=== PATIENT | male | born 1985 | race Caucasian/White ===

== ENCOUNTER 2016-08-13 07:43 | Inpatient (IN) | payer MEDICAID, OTHER ==
[2016-08-13] VITALS (13 sets, daily range): BP systolic 93–132; BP diastolic 48–75; PULSE 72–92; RESP 13–52; TEMP 102.1
[~2016-08-13] VITALS: Ht 165.1 cm; Wt 90.0 kg
[~2016-08-13 07:43] MED LIST: SUCCINYLCHOLINE CHLORIDE 100 MG/5 ML SYG IV ONE
[2016-08-13] MEDS ORDERED: ONDANSETRON 4 MG INJ IV STA (08:06)
[2016-08-13] MEDS ORDERED: SOD CHLORIDE 0.9% 1,000 ML IV STA (08:06)
[2016-08-13] MEDS ORDERED: morphine 4 MG/ML VIAL IV STA (08:06)
[2016-08-13 08:38] LABS: BASOPHILS % 0.2 % (0.0-2.0); EOSINOPHILS # 0.1 10^3/ul (0.0-0.5); EOSINOPHILS % 0.7 % (0.0-7.0); HEMATOCRIT 43.2 % (42.0-52.0); HEMOGLOBIN 14.7 g/dl (14.0-18.0); LYMPHOCYTES # 1.9 10^3/ul (0.8-2.9); LYMPHOCYTES % 12.6 % (15.0-51.0); MEAN CORPUSCULAR HEMOGLOBIN 30.7 pg (29.0-33.0); MEAN CORPUSCULAR VOLUME 90.2 fl (82.0-101.0); MEAN PLATELET VOLUME 9.1 fl (7.4-10.4); MONOCYTE # 0.9 10^3/ul (0.3-0.9); MONOCYTES % 6.1 % (0.0-11.0); NEUTROPHILS % 79.9 % (39.0-77.0); PLATELET COUNT 345 10^3/UL (140-415); RED BLOOD COUNT 4.79 10^6/ul (4.70-6.10); RED CELL DISTRIBUTION WIDTH 12.1 % (11.5-14.5)
--- NOTE | 2016-08-13 08:41 | RADRPT ---
AMENDMENT: 08/13/2016 10:43:07 AM Phong Alexandre M.D PROCEDURE: CT Abdomen and Pelvis without contrast. CLINICAL INDICATION: Right lower quadrant pain, fever. TECHNIQUE: CT scan of the abdomen and pelvis without contrast was performed on a multidetector [facility] h-resolution CT scanner. The patient was scanned without intravenous contrast. Coronal and sagittal reformatted images were obtained from the axial source images. Images were reviewed on a high-resol [employer] PACS workstation. The total exam CTDI equals 17.77 mGy and the total exam DLP equals 1094.03 m Gy-cm. One or the following dose reduction techniques were used: -Automated exposure control. -Adjustment of the mA and/or KV according to patient's size. -Use of iterative reconstruction technique. COMPARISON: None. FINDINGS: Lung Bases: Unremarkable. GI:. Unremarkable. Liver: Liver appears normal in size. The overall attenuation is decrease consistent with mild diffu se steatosis appear Gallbladder: Unremarkable. Pancreas: Unremarkable. Spleen: Unremarkablel Adrenals: Unremarkable. Kidneys: There is no evidence of urolithiasis or obstructive uropathy. Bladder: Unremarkable. Pelvic Organs: Unremarkable. Skeleton: Normal for age. Other: N/A IMPRESSION: 1. Findings consistent with acute appendicitis. 2. Mild decrease in the attenuation of the liver suggesting mild diffuse steatosis. 3. No evidence of urolithiasis or obstructive uropathy. Note: A call report was made to Leyla Paula on 08/13/2016 8:38:45 AM. RPTAT: [facility] PROCEDURE: CT Abdomen and Pelvis without contrast. CLINICAL INDICATION: Right lower quadrant pain, fever. TECHNIQUE: CT scan of the abdomen and pelvis without contrast was performed on a multidetector [facility] h-resolution CT scanner. The patient was scanned without intravenous contrast. Coronal and sagittal reformatted images were obtained from the axial source images. Images were reviewed on a high-resol [employer] PACS workstation. The total exam CTDI equals 17.77 mGy and the total exam DLP equals 1094.03 m Gy-cm. One or the following dose reduction techniques were used: -Automated exposure control. -Adjustment of the mA and/or KV according to patient's size. -Use of iterative reconstruction technique. COMPARISON: None. FINDINGS: Lung Bases: Unremarkable. GI:. Unremarkable. Liver: Liver appears normal in size. The overall attenuation is decrease consistent with mild diffu se steatosis appear Gallbladder: Unremarkable. Pancreas: Unremarkable. Spleen: Unremarkablel Adrenals: Unremarkable. Kidneys: There is no evidence of urolithiasis or obstructive uropathy. Bladder: Unremarkable. Pelvic Organs: Unremarkable. Skeleton: Normal for age. Other: N/A IMPRESSION: 1. Findings consistent with acute appendicitis. 2. Mild decrease in the attenuation of the liver suggesting mild diffuse steatosis. 3. No evidence of urolithiasis or obstructive uropathy. Note: A call report was made to Leyla Paula on 08/13/2016 8:38:45 AM. RPTAT: [facility] Physician Kashif Date Time Electronically viewed and signed by Jose Alexandre Physician on 08/13/2016 10:43 JH/
--- NOTE | 2016-08-13 08:47 | ERD ---
ER Documentation Chief Complaint Date/Time DATE: 08/13/16 TIME: 08:43 Chief Complaint RLQ ABD PAIN, ONSET 2 DAYS, GUARDING, TENDER ON PALPATION (JORGE CASTILLO) HPI This is a 31-year-old male presents to the ER with right lower quadrant abdominal pain that started yesterday. Patient states that abdominal pain started off mild, however pain has worsened. Pain is nonradiating. Pain is described as a stabbing sensation. Patient had a fever last night and has had episodes of nonbilious nonbloody vomiting. He does not have any diarrhea or constipation. Patient took Tylenol for his fever which resolved fever yesterday. He denies any urinary frequency or dysuria. He denies any testicular pain. He denies any trauma. (JORGE CASTILLO) ROS 12 point review of systems was done, all negative except per HPI. (JORGE CASTILLO) Allergies Allergies: Coded Allergies: No Known Drug Allergies (Verified Allergy, Unknown, 08/13/16) PMhx/Soc History of Surgery: No Anesthesia Reaction: No Hx Neurological Disorder: No Hx Respiratory Disorders: No Hx Cardiac Disorders: No Hx Psychiatric Problems: No Hx Miscellaneous Medical Probl: No Hx Alcohol Use: No Hx Substance Use: No Hx Tobacco Use: No Smoking Status: Never smoker (JORGE CASTILLO) Physical Exam Vitals Vital Signs Date Time Temp Pulse Resp B/P Pulse Ox O2 Delivery O2 Flow Rate FiO2 08/13/16 07:45 99.5 107 17 124/71 99 (AURORA BEVERLY DO) Physical Exam GENERAL: The patient is well developed and appropriate for usual state of health , in no apparent distress. HEENT: Atraumatic. CHEST: Clear to auscultation bilaterally. There are no rales, wheezes or rhonchi. HEART: Regular rate and rhythm. No murmurs, clicks, rubs or gallops. ABDOMEN: Soft, nondistended, tender to palpation in the right lower quadrant.. Good bowel sounds. Rebound tenderness with guarding.. No gross peritonitis. No gross organomegaly or masses. No Devries sign, positive McBurney's point. BACK: No midline or flank tenderness. NEURO: Alert and oriented. SKIN: The skin is warm and dry. (JORGE CASTILLO) Result Diagram: 08/13/16 0815 08/13/16 0815 Results 24 hrs Laboratory Tests Test 08/13/16 08:15 08/13/16 10:36 White Blood Count 15.010^3/ul Red Blood Count 4.7910^6/ul Hemoglobin 14.7g/dl Hematocrit 43.2% Mean Corpuscular Volume 90.2fl Mean Corpuscular Hemoglobin 30.7pg Mean Corpuscular Hemoglobin Concent 34.0g/dl Red Cell Distribution Width 12.1% Platelet Count 78549^3/UL Mean Platelet Volume 9.1fl Neutrophils % 79.9% Lymphocytes % 12.6% Monocytes % 6.1% Eosinophils % 0.7% Basophils % 0.2% Nucleated Red Blood Cells % 0.0/100WBC Neutrophils # 12.010^3/ul Lymphocytes # 1.910^3/ul Monocytes # 0.910^3/ul Eosinophils # 0.110^3/ul Basophils # 0.010^3/ul Nucleated Red Blood Cells # 0.010^3/ul Prothrombin Time 13.3Sec Prothrombin Time Ratio 1.0 INR International Normalized Ratio 1.01 Activated Partial Thromboplast Time 34.2Sec Sodium Level 135mmol/L Potassium Level 3.8mmol/L Chloride Level 96mmol/L Carbon Dioxide Level 28mmol/L Anion Gap 15 Blood Urea Nitrogen 8mg/dl Creatinine 0.89mg/dl Glucose Level 103mg/dl Calcium Level 9.5mg/dl Total Bilirubin 1.0mg/dl Direct Bilirubin 0.00mg/dl Indirect Bilirubin 1.0mg/dl Aspartate Amino Transf (AST/SGOT) 32IU/L Alanine Aminotransferase (ALT/SGPT) 53IU/L Alkaline Phosphatase 104IU/L Total Protein 8.3g/dl Albumin 5.1g/dl Globulin 3.20g/dl Albumin/Globulin Ratio 1.59 Lipase 25U/L Urine Color YELLOW Urine Clarity CLEAR Urine pH 6.0 Urine Specific [place] 1.008 Urine Ketones NEGATIVEmg/dL Urine Nitrite NEGATIVEmg/dL Urine Bilirubin NEGATIVEmg/dL Urine Urobilinogen NEGATIVEmg/dL Urine Leukocyte Esterase NEGATIVELeu/ul Urine Hemoglobin NEGATIVEmg/dL Urine Glucose 1+mg/dL Urine Total Protein NEGATIVEmg/dl Current Medications Medications (Trade) Dose Ordered Sig/Tomas Route PRN Reason Start Time Stop Time Status Last Admin Dose Admin Sodium Chloride (NS) 1,000 ml @ 1,000 mls/hr Q1H STAT IV 08/13/16 08:06 08/13/16 09:05 DC 08/13/16 08:19 Morphine Sulfate (morphine) 6 mg ONCE STAT IV 08/13/16 08:06 08/13/16 08:08 DC 08/13/16 08:20 Ondansetron HCl 4 mg 4 mg ONCE STAT IV 08/13/16 08:06 08/13/16 08:08 DC 08/13/16 08:19 Piperacillin Sod/ Tazobactam Sod 100 ml @ 200 mls/hr ONCE ONCE IVPB 08/13/16 09:00 08/13/16 09:29 DC 08/13/16 09:23 Sodium Chloride (NS) 1,000 ml @ 1,000 mls/hr Q1H ONCE IV 08/13/16 09:00 08/13/16 09:59 DC 08/13/16 09:09 Ondansetron HCl (Zofran Inj) 4 mg BRIDGE ORDER PRN IV NAUSEA AND/OR VOMITING 08/13/16 11:30 08/14/16 11:29 Acetaminophen (Tylenol Tab) 650 mg ER BRIDGE PRN PO MILD PAIN/FEVER 08/13/16 11:30 08/14/16 11:29 Acetaminophen (Tylenol Tab) 650 mg ONCE ONCE PO 08/13/16 11:30 08/13/16 11:31 DC 08/13/16 11:48 (AURORA BEVERLY DO) Procedures/MDM This is a 31-year-old male presents to the ER with right lower quadrant pain that started 2 days ago. Patient does have acute appendicitis and would benefit from admission for further management and care. At this time patient is afebrile and stable. (JORGE CASTILLO) Patient does work as began in fast track. His abdominal pain is improved with pain medications. Did call and speak with Dr. Gomez who will be surgically managing the case. Dr. Olvera is also aware and is admitting the patient to the medical surgical floor. (AURORA BEVERLY DO) Departure Diagnosis: Primary Impression: Appendicitis Condition: Stable JORGE CASTILLO Aug 13, 2016 08:46 AURORA BEVERLY DO Aug 13, 2016 11:54
[2016-08-13 08:55] LABS: ALBUMIN 5.1 g/dl (3.3-4.9); ALBUMIN/GLOBULIN RATIO 1.59; CALCIUM 9.5 mg/dl (8.4-10.2); CREATININE 0.89 mg/dl (0.61-1.24); POTASSIUM 3.8 mmol/L (3.5-5.1); TOTAL PROTEIN 8.3 g/dl (6.1-8.1)
[2016-08-13] MEDS ORDERED: SOD CHLORIDE 0.9% 1,000 ML IV ONE (09:00)
[2016-08-13] MEDS ORDERED: PIPER-TAZO 3.375 GM IV (PMX) 100 ML IVPB ONE (09:00)
[2016-08-13 09:07] LABS: ADD SCAN DIFF NO
--- NOTE | 2016-08-13 09:26 | RADRPT ---
PROCEDURE: Chest Radiograph. CLINICAL INDICATION: Abdominal pain TECHNIQUE: Single frontal chest radiograph. COMPARISON: None available FINDINGS: The cardiomediastinal silhouette is within normal limits. No infiltrate or effusion is seen. Th e bones are intact. IMPRESSION: 1. Unremarkable chest radiograph. RPTAT: [facility] .Jacob Lamar MD, MD Date Time Electronically viewed and signed by .Jacob Lamar MD, on 08/13/2016 09:26 .B/
[2016-08-13 11:29] LABS: INR 1.01; PROTIME 13.3 Sec (12.2-14.2)
[2016-08-13 11:30] LABS: PARTIAL THROMBOPLASTIN TIME 34.2 Sec (25.0-35.0)
[2016-08-13] MEDS ORDERED: ACETAMINOPHEN 325 MG TAB PO ONE (11:30)
[2016-08-13] MEDS ORDERED: ONDANSETRON 4 MG INJ IV PRN ×4 (11:30→16:30)
[2016-08-13] MEDS ORDERED: ACETAMINOPHEN 325 MG TAB PO PRN ×3 (11:30→16:00)
[2016-08-13 11:34] LABS: ADD UMIC NO; UR ASCORBIC ACID NEGATIVE (NEGATIVE); UR BILIRUBIN (Dip) NEGATIVE (NEGATIVE); UR BLOOD (Dip) NEGATIVE (NEGATIVE); UR CLARITY CLEAR (CLEAR); UR COLOR YELLOW (YELLOW); UR GLUCOSE (Dip) 1+ mg/dL (NEGATIVE); UR KETONES (Dip) NEGATIVE (NEGATIVE); UR LEUKOCYTE ESTERASE (Dip) NEGATIVE Leu/ul (NEGATIVE); UR NITRITE (Dip) NEGATIVE (NEGATIVE); UR SPECIFIC GRAVITY (Dip) 1.008 (1.003-1.030); UR TOTAL PROTEIN (Dip) NEGATIVE (NEGATIVE); UR UROBILINOGEN (Dip) NEGATIVE (NEGATIVE)
[2016-08-13] MEDS ORDERED: HYDROCODONE/APAP (5/325) TAB PO PRN ×2 (12:30→16:00)
[2016-08-13] MEDS ORDERED: NACL 0.9% 3 ML SYG IV SCH (12:30)
[2016-08-13] MEDS ORDERED: morphine 2 MG INJ IV PRN (12:30)
[2016-08-13] MEDS ORDERED: D5W-0.45 NACL + KCL 10 MEQ 1,000 ML IV SCH (12:30)
--- NOTE | 2016-08-13 12:42 | HP ---
Date/Time of Note Date/Time of Note DATE: 08/13/16 TIME: 12:37 Assessment/Plan VTE Prophylaxis VTE Prophylaxis Intervention: SCD's Assessment/Plan Chief Complaint/Hosp Course 1. Acute abdominal pain. CT evidence of acute appendicitis. The patient will be kept n.p.o. The patient was started on appropriate antibiotics. The patient will be given IV fluids. General surgery consult has already been called. The patient will be provided with adequate pain control. 2. Leukocytosis. Most probably secondary to #1. Continue management as per # 1. Plan: The patient will be admitted to inpatient medical surgical floor. The patient will be kept n.p.o. except for medications. The patient will be started on DVT prophylaxis and gastrointestinal prophylaxis. The patient will remain a full code. Activities will be as tolerated. The rest of the patient's management will be based on the clinical course, inputs from consultants, and the results of diagnostic studies. Based on the patient's clinical presentation, he most probably requires at least one midnight's stay for further management and evaluation of his clinical presentation. The case and management of this patient was fully discussed with Dr. Olvera. Problems: HPI/ROS Admit Date/Time Admit Date/Time Hx of Present Illness Reason for admission: Abdominal pain. Consultants 1. Ralph Gomez MD, General Surgery. This is a 31-year-old male who denies any past medical history who came to the emergency room with chief complaint of abdominal pain with associated nausea, nonbloody nonbilious vomiting, diarrhea, and febrile illness. The patient verbalized that he has been having pain for the past 3 days. Patient described the pain as a stabbing sensation. The patient denied any radiation of the pain. The patient denied any dysuria or hematuria. The patient was noticed no leukocytosis. The patient was also febrile with a temperature as high as 102.9F. The patient underwent a CT scan of the abdomen and pelvis that showed findings consistent with acute appendicitis. The patient was treated with IV Zosyn along with IV fluids, analgesics, and antiemetics in the emergency room. A general surgery consult was called by the ER physician. ROS Constitutional: febrile, nausea Eyes: no complaints ENT: no complaints Respiratory: no complaints Cardiovascular: no complaints Gastrointestinal: diarrhea, pain Genitourinary: no complaints Musculoskeletal: no complaints Skin: no complaints Neurologic: no complaints Endocrine: no complaints Lymphatic: no complaints Psychological: no complaints PMH/Family/Social Past Medical History Medical History: no pertinent history Past Surgical History Past Surgical Hx: other (Laparotomy for hernia [details unclear]) Social History Works in construction. Alcohol Use: occasionally Smoking Status: Never smoker Drug Use: none Exam/Review of Systems Vital Signs Vitals Vital Signs Date Time Temp Pulse Resp B/P Pulse Ox O2 Delivery O2 Flow Rate FiO2 08/13/16 12:13 102.9 91 20 119/68 98 Room Air Exam Exam General: Adequately build 31 year-old male lying in bed in no apparent distress. HEENT: Normocephalic, atraumatic. Eyes: Anicteric sclerae, conjunctivae clear. ENT: Nasal septum midline, oral mucosa moist. Neck supple, no JVD noticed. Respiratory: Bilaterally clear breath sounds. No use of accessory muscles of respiration. No adventitious breath sounds. Cardiovascular: S1, S2 heard. No murmurs or gallops. Abdomen: Soft and nondistended. Bowel sounds positive in all 4 quadrants. Right lower quadrant tenderness. Rebound tenderness on the right lower quadrant. Genitourinary: Deferred. Extremities: No cyanosis, no clubbing, no edema. Peripheral pulses palpable. Neurologic: Cranial nerves II through XII grossly intact. The patient is awake, alert, and oriented. Skin: Normal skin turgor. No skin rashes. Labs Result Diagram: 08/13/16 0815 08/13/16 0815 Medications Medications Current Medications Ondansetron HCl (Zofran Inj) 4 mg Q6H PRN IV NAUSEA AND/OR VOMITING; Start at 12:30 Acetaminophen (Tylenol Tab) 650 mg Q6H PRN PO PAIN LEVEL 1-3 OR FEVER; Start at 12:30 Acetaminophen/ Hydrocodone Bitart ([place] (5/325)) 1 tab Q6H PRN PO MODERATE PAIN LEVEL 4-6; Start 08/13/16 at 12:30 Morphine Sulfate (morphine) 2 mg Q4H PRN IV SEVERE PAIN LEVEL 7-10; Start 08/13 at 12:30 Famotidine 20 mg 20 mg Q12 IV ; Start 08/13/16 at 21:00 Potassium Chloride/Dextrose/ Sod Cl 1,000 ml @ 100 mls/hr Q10H IV ; Start 08/13 at 12:30; Status UNV Piperacillin Sod/ Tazobactam Sod (Zosyn 3.375gm/ 100 ml (Pmx)) 100 ml @ 200 mls /hr Q8 IVPB ; Start 08/13/16 at 14:00; Status UNV Procedures Procedures CT Scan of the Abdomen and Pelvis IMPRESSION: 1. Findings consistent with acute appendicitis. 2. Mild decrease in the attenuation of the liver suggesting mild diffuse steatosis. 3. No evidence of urolithiasis or obstructive uropathy. CXR IMPRESSION: 1. Unremarkable chest radiograph. KATHY CASTELLANOS NP Aug 13, 2016 12:42
[2016-08-13 13:40] LABS: CHOL/HDL RATIO 4.3 RATIO
[2016-08-13] MEDS ORDERED: PIPER-TAZO 3.375 GM IV (PMX) 100 ML IVPB SCH (15:30)
[2016-08-13] MEDS ORDERED: ACETAMINOPHEN 1000MG/100ML IV 100 ML IVPB ONE (15:30)
[2016-08-13] MEDS ORDERED: LACTATED RINGER'S 1,000 ML IV SCH (15:30)
--- NOTE | 2016-08-13 15:50 | HP ---
Date/Time of Note Date/Time of Note DATE: 08/13/16 TIME: 15:48 Assessment/Plan VTE Prophylaxis VTE Prophylaxis Intervention: anti-embolic stocking, LMWH Assessment/Plan Assessment/Plan Assessment plan acute appendicitis I discussed laparoscopic, possible open appendectomy. All benefits, risks, alternatives discussed in detail. All questions were answered. The patient elected to proceed HPI/ROS Admit Date/Time Admit Date/Time Hx of Present Illness The patient is a 31-year-old male who developed acute onset right lower quadrant pain 2 days ago. His symptoms persisted and he had nausea vomiting. He presented to the ER at [facility]. His workup was consistent with acute appendicitis and I was called for consultation. ROS Constitutional: febrile, nausea Eyes: no complaints ENT: no complaints Respiratory: no complaints Cardiovascular: no complaints Gastrointestinal: diarrhea, pain Genitourinary: no complaints Musculoskeletal: no complaints Skin: no complaints Neurologic: no complaints Endocrine: no complaints Lymphatic: no complaints Psychological: no complaints PMH/Family/Social Past Medical History Medical History: no pertinent history Past Surgical History Past Surgical Hx: other (Laparotomy for hernia [details unclear]) Social History Alcohol Use: occasionally Smoking Status: Never smoker Drug Use: none Exam/Review of Systems Vital Signs Vitals Vital Signs Date Time Temp Pulse Resp B/P Pulse Ox O2 Delivery O2 Flow Rate FiO2 08/13/16 15:00 102.1 88 20 124/66 97 Room Air Exam Constitutional: alert, oriented, well developed Head: normocephalic Eyes: nl conjunctiva Respiratory: clear to auscultation Cardiovascular: regular rate and rhythm Gastrointestinal: soft, tender (to RLQ) Genitourinary - Male: nl penis, nl scrotum Musculoskeletal: nl extremities to inspection Extremities: normal pulses Labs Result Diagram: 08/13/1615 08/13/16 0815 Medications Medications Current Medications Ondansetron HCl (Zofran Inj) 4 mg Q6H PRN IV NAUSEA AND/OR VOMITING; Start at 12:30 Acetaminophen (Tylenol Tab) 650 mg Q6H PRN PO PAIN LEVEL 1-3 OR FEVER; Start at 12:30 Acetaminophen/ Hydrocodone Bitart ([place] (5/325)) 1 tab Q6H PRN PO MODERATE PAIN LEVEL 4-6; Start 08/13/16 at 12:30 Morphine Sulfate (morphine) 2 mg Q4H PRN IV SEVERE PAIN LEVEL 7-10; Start 08/13 at 12:30 Famotidine 20 mg 20 mg Q12 IV ; Start 08/13/16 at 21:00 Potassium Chloride/Dextrose/ Sod Cl 1,000 ml @ 100 mls/hr Q10H IV ; Start 08/13 at 12:30 Piperacillin Sod/ Tazobactam Sod 100 ml @ 200 mls/hr Q8 IVPB ; Start 08/13/16 at 15:30 Lactated Ringer's (Lr) 1,000 ml @ 30 mls/hr Q24H IV ; Start 08/13/16 at 15:30 REGGIE MUNSON MD Aug 13, 2016 15:49
--- NOTE | 2016-08-13 15:54 | HP ---
Date/Time of Note Date/Time of Note DATE: 08/13/16 TIME: 15:34 Assessment/Plan VTE Prophylaxis VTE Prophylaxis Intervention: ambulation HPI/ROS Admit Date/Time Admit Date/Time ROS Constitutional: febrile, nausea ENT: no complaints Respiratory: no complaints Cardiovascular: chest pain, edema, lightheadedness, no complaints, orthopenea, other, palpitations, paroxysmal nocturnal dyspnea Gastrointestinal: diarrhea, pain Genitourinary: no complaints Musculoskeletal: no complaints Skin: no complaints Neurologic: no complaints Endocrine: no complaints Lymphatic: no complaints Psychological: no complaints PMH/Family/Social Past Medical History Medical History: no pertinent history Past Surgical History Past Surgical Hx: other (Laparotomy for hernia [details unclear]) Social History Alcohol Use: occasionally Smoking Status: Never smoker Drug Use: none Exam/Review of Systems Vital Signs Vitals Vital Signs Date Time Temp Pulse Resp B/P Pulse Ox O2 Delivery O2 Flow Rate FiO2 08/13/16 15:00 102.1 88 20 124/66 97 Room Air Labs Result Diagram: 08/13/1615 08/13/16 0815 Medications Medications Current Medications Ondansetron HCl (Zofran Inj) 4 mg Q6H PRN IV NAUSEA AND/OR VOMITING; Start at 12:30 Acetaminophen (Tylenol Tab) 650 mg Q6H PRN PO PAIN LEVEL 1-3 OR FEVER; Start at 12:30 Acetaminophen/ Hydrocodone Bitart ([place] (5/325)) 1 tab Q6H PRN PO MODERATE PAIN LEVEL 4-6; Start 08/13/16 at 12:30 Morphine Sulfate (morphine) 2 mg Q4H PRN IV SEVERE PAIN LEVEL 7-10; Start 08/13 at 12:30 Famotidine 20 mg 20 mg Q12 IV ; Start 08/13/16 at 21:00 Potassium Chloride/Dextrose/ Sod Cl 1,000 ml @ 100 mls/hr Q10H IV ; Start 08/13 at 12:30 Piperacillin Sod/ Tazobactam Sod 100 ml @ 200 mls/hr Q8 IVPB ; Start 08/13/16 at 15:30 Acetaminophen 100 ml @ 400 mls/hr ONCE ONCE IVPB Last administered on t 15:22; Admin Dose 400 MLS/HR; Start 08/13/16 at 15:30; Stop 08/13/16 at 15: 44 Lactated Ringer's (Lr) 1,000 ml @ 30 mls/hr Q24H IV ; Start 08/13/16 at 15:30 REGGIE MUNSON MD Aug 13, 2016 15:45
[2016-08-13] MEDS ORDERED: PROPOFOL 20 ML ONE (15:58)
[2016-08-13] MEDS ORDERED: ROCURONIUM 50 MG INJ ONE (15:58)
[2016-08-13] MEDS ORDERED: BUPIVACAINE 0.25%/EPI (SDV) 30 ML INJ ONE (15:58)
[2016-08-13] MEDS ORDERED: MIDAZOLAM 1 MG/ML 2 ML INJ ONE (15:58)
[2016-08-13] MEDS ORDERED: LIDOCAINE 1% (STERILE-PAK) 30 ML INJ ONE (15:58)
[2016-08-13] MEDS ORDERED: FENTAnyl 50 MCG/ML VIAL ONE (15:59)
[2016-08-13] MEDS ORDERED: ROPIVACAINE 0.5 % 30 ML VIAL ONE (15:59)
[2016-08-13] MEDS ORDERED: HYDROmorphONE 1 MG/ML SYG IV PRN (16:00)
[2016-08-13] MEDS: KETOROLAC 15 MG INJ IV SCH ×2 (16:00→22:05)
[2016-08-13] MEDS ORDERED: hydrALAzine 20 MG INJ IV PRN (16:30)
[2016-08-13] MEDS ORDERED: DIPHENHYDRAMINE 50 MG INJ IV PRN (16:30)
[2016-08-13] MEDS ORDERED: LABETALOL HCL 20MG INJ IV PRN (16:30)
[2016-08-13] MEDS ORDERED: EPHEDrine SULFATE 50 MG/5 ML SYG IV PRN (16:30)
[2016-08-13] MEDS ORDERED: METOCLOPRAMIDE 10 MG INJ IV PRN (16:30)
[2016-08-13] MEDS ORDERED: HYDROmorphONE (0.2 MG/ML) 10ML SYG IV PRN ×3 (16:30)
[2016-08-13] MEDS ORDERED: MEPERIDINE 25 MG INJ IV PRN (16:30)
[2016-08-13] MEDS ORDERED: morphine (1 MG/ML) 10ML SYRINGE IV PRN ×3 (16:30)
[2016-08-13] MEDS ORDERED: LIDOCAINE 1% (MPF) 30 ML INJ INJ ONE (16:32)
[2016-08-13] MEDS ORDERED: BUPIVACAINE 0.25%/EPI (SDV) 30 ML INJ INJ ONE (16:33)
[2016-08-13] MEDS ORDERED: METOCLOPRAMIDE 10 MG INJ ONE (16:37)
[2016-08-13] MEDS ORDERED: ONDANSETRON 4 MG INJ ONE (16:37)
[2016-08-13] MEDS ORDERED: KETOROLAC 30 MG INJ ONE (16:37)
[2016-08-13] MEDS ORDERED: DEXAMETHASONE 4 MG/ML 1 ML INJ ONE (16:37)
[2016-08-13] MEDS ORDERED: ACETAMINOPHEN 1000MG/100ML IV 100 ML ONE (16:38)
[2016-08-13] MEDS ORDERED: NEOSTIGMINE 3 MG/3 ML SYRINGE ONE (16:50)
[2016-08-13] MEDS ORDERED: GLYCOPYRROLATE 0.4 MG INJ ONE (16:50)
[2016-08-13] MEDS: PIPER-TAZO 3.375 GM IV (PMX) 100 ML IVPB SCH (17:00)
--- NOTE | 2016-08-13 20:18 | OPR ---
Date/Time of Note Date/Time of Note DATE: 08/13/16 TIME: 20:11 Operative Report Procedure Date: Aug 13, 2016 Preoperative Diagnosis Acute Appendicitis Postoperative Diagnosis Same Operation Performed Lap appendectomy Surgeon: REGGIE MUNSON MD Anesthesia: general Anesthesiologist: IHSAN CARRASCO MD Estimated Blood Loss: 10 - 50 ml's Specimens Appendix\ Grafts/Implants None Tubes/Drains 19 F R Meir Complications: None Pt Condition Post Procedure: stable Disposition: PACU Indications The patient is a 31 y.o. w/ acute appendicitis. I discussed laparoscopic, possible open, appendectomy with the patient. All benefits, risks, and alternatives were discussed in detail with the patient. All of the patient's questions were answered specifically with respect to the indications, options and risks. The patient agreed with the planned procedure. Operative\Procedure Findings perforated appendicitis Procedure Description The patient was brought to the operating room, placed supine on the table. After preoperative antibiotics and SCDs was placed, the patient was intubated. The abdomen was cleaned, prepped and draped in sterile fashion. All incisions were injected with 1 percent lidocaine with epinephrine and 0.5 percent Marcaine prior to incision. A 5 mm incision was made in the umbilicus. Using a 5 mm laparoscope containing trocar, the abdomen was entered under direct vision and insufflated to 15 mm of CO2. Trocars were then placed under direct vision: a right lower quadrant 5 mm and a left lower quadrant 12 mm. Emanating from the cecum, was an obvious appendix consistent with acute appendictis. It was ruptured. I was able to make a rent at the base of the mesentery where the appendix joined the cecum and was able to divide the cecum at the base of the appendix with a 345 mm Endo linear cutter blue load. The appendiceal mesentery was then divided with a 35 mm Endo linear cutter white load. The appendix was placed in an EndoCatch bag and removed through the 12 mm trocar site. I copiously irrigated out the right lower quadrant and pelvis until effluent was clear. A 19 F [place] drain was placed in the RLQ and pelvis. It exited through the RLQ 5 mm trocar site and was sutured to the skin with a 2'0 Nylon. I closed the fascial defect of the 12mm trocar with a 0 Vicryl sing the Endoclose device under direct vision. . At this point, the abdomen was desufflated and all trocars removed. Skin incisions were all closed with 4-0 Monocryl, Mastisol and Steri-Strips. The patient tolerated the procedure well, was extubated in the OR, and transferred to the recovery room in stable condition. The patient's family was notified of the patient's surgery and condition as directed by the patient preoperatively. REGGIE MUNSON MD Aug 13, 2016 20:18
[2016-08-13] MEDS: D5-NS + KCL 20 MEQ 1,000 ML IV SCH ×2 (21:58→23:59)
[2016-08-13] MEDS: FAMOTIDINE 20 MG INJ IV SCH (22:05)
[2016-08-14] MEDS: PIPER-TAZO 3.375 GM IV (PMX) 100 ML IVPB SCH ×5 (00:55→23:27)
[2016-08-14] MEDS: KETOROLAC 15 MG INJ IV SCH ×4 (04:59→23:27)
[2016-08-14 06:09] LABS: BASOPHILS % 0.1 % (0.0-2.0); LYMPHOCYTES # 1.1 10^3/ul (0.8-2.9); LYMPHOCYTES % 7.8 % (15.0-51.0); MEAN CORPUSCULAR HEMOGLOBIN 29.8 pg (29.0-33.0); MEAN CORPUSCULAR HGB CONC 32.5 g/dl (32.0-37.0); MEAN CORPUSCULAR VOLUME 91.7 fl (82.0-101.0); MEAN PLATELET VOLUME 9.3 fl (7.4-10.4); MONOCYTE # 0.7 10^3/ul (0.3-0.9); MONOCYTES % 4.7 % (0.0-11.0); NEUTROPHIL # 12.1 10^3/ul (1.6-7.5); PLATELET COUNT 297 10^3/UL (140-415); RED BLOOD COUNT 4.36 10^6/ul (4.70-6.10); RED CELL DISTRIBUTION WIDTH 12.1 % (11.5-14.5); WHITE BLOOD COUNT 13.9 10^3/ul (4.8-10.8)
[2016-08-14 06:32] LABS: MAGNESIUM 2.4 mg/dl (1.7-2.5); PHOSPHORUS 3.7 mg/dl (2.5-4.9)
[2016-08-14 06:33] LABS: ALBUMIN 4.2 g/dl (3.3-4.9); ALBUMIN/GLOBULIN RATIO 1.5; BILIRUBIN,INDIRECT 0.6 mg/dl (0-1.1); BILIRUBIN,TOTAL 0.6 mg/dl (0.2-1.3); CALCIUM 9.2 mg/dl (8.4-10.2); CREATININE 0.81 mg/dl (0.61-1.24); POTASSIUM 4.1 mmol/L (3.5-5.1)
[2016-08-14] MEDS: ENOXAPARIN 40 MG/0.4 ML SYG SC SCH (07:55)
[2016-08-14 08:00] VITALS: BP 102/52; RESP 18
[2016-08-14] MEDS: FAMOTIDINE 20 MG INJ IV SCH ×2 (08:01→23:27)
--- NOTE | 2016-08-14 08:54 | PN ---
Date/Time of Note Date/Time of Note DATE: 08/14/16 TIME: 08:52 Assessment/Plan Lines/Catheters IV Catheter Type (from Nrs): Peripheral IV Assessment/Plan Assessment/Plan Postop day 1 from laparoscopic appendectomy for perforated appendix Advance diet as tolerate Out of bed Recommend 24 hours of IV antibiotic Hopefully discharge tomorrow with drain Subjective 24 Hr Interval Summary Patient without complaints. Feeling better Exam/Review of Systems Vital Signs Vitals Vital Signs Date Time Temp Pulse Resp B/P Pulse Ox O2 Delivery O2 Flow Rate FiO2 08/13/16 23:18 98.1 79 16 93/48 95 08/13/16 18:20 Room Air 08/13/16 17:31 2.0 Intake and Output 08/13/16 08/13/16 08/14/16 15:00 23:00 07:00 Intake Total 2000 ml 1000 ml 1240 ml Output Total 930 ml 770 ml Balance 2000 ml 70 ml 470 ml Exam Respiratory: clear to auscultation Cardiovascular: regular rate and rhythm Gastrointestinal: distended, soft Results Result Diagram: 08/14/16 0536 08/14/16 0536 REGGIE MUNSON MD Aug 14, 2016 08:54
--- NOTE | 2016-08-14 10:45 | PN ---
Date/Time of Note Date/Time of Note DATE: 08/14/16 TIME: 10:45 Assessment/Plan VTE Prophylaxis VTE Prophylaxis Intervention: LMWH Lines/Catheters IV Catheter Type (from [facility]): Peripheral IV Urinary Cath still in place: No Assessment/Plan Chief Complaint/Hosp Course 1. Perforated appendicitis. Status post laparoscopic appendectomy and placement of a drain on 08/13/2016. Continue antibiotics. Continue pain control. Advancement of diet as per surgery. 2. Leukocytosis. Most probably secondary to #1. Continue management as per # 1. 3. Dyslipidemia. We will reinforce a low-cholesterol diet. 4. Prediabetes. Hemodynamics of 6.1. We will reinforce a low carbohydrate diet. 5. Fluids, electrolytes, and nutrition. Clear liquid diet. Advancement of diet as per surgery. 6. DVT prophylaxis. Subcutaneous Lovenox. 7. Gastrointestinal prophylaxis. Histamine 2 receptor blockers. 8. Plan. Continue pain management. Continue empiric antibiotics. Encourage frequent ambulation and frequent use of incentive spirometer. Case discussed with . Problems: Subjective 24 Hr Interval Summary Free Text/Dictation Patient remains afebrile. Abdominal pain well controlled. Exam/Review of Systems Vital Signs Vitals Vital Signs Date Time Temp Pulse Resp B/P Pulse Ox O2 Delivery O2 Flow Rate FiO2 08/14/16 08:00 98.6 68 18 102/52 96 08/13/16 18:20 Room Air 08/13/16 17:31 2.0 Intake and Output 08/13/16 08/13/16 08/14/16 15:00 23:00 07:00 Intake Total 2000 ml 1000 ml 1240 ml Output Total 930 ml 770 ml Balance 2000 ml 70 ml 470 ml Exam General: Adequately build 31 year-old male lying in bed in no apparent distress. HEENT: Normocephalic, atraumatic. Eyes: Anicteric sclerae, conjunctivae clear. ENT: Nasal septum midline, oral mucosa moist. Neck supple, no JVD noticed. Respiratory: Bilaterally clear breath sounds. No use of accessory muscles of respiration. No adventitious breath sounds. Cardiovascular: S1, S2 heard. No murmurs or gallops. Abdomen: Soft and nondistended. Bowel sounds positive in all 4 quadrants. Right lower quadrant tenderness. Right lower quadrant drain in place. Genitourinary: Deferred. Extremities: No cyanosis, no clubbing, no edema. Peripheral pulses palpable. Neurologic: Cranial nerves II through XII grossly intact. The patient is awake, alert, and oriented. Skin: Normal skin turgor. No skin rashes. Results Result Diagram: 08/14/1636 08/14/1636 Results 24 hrs Laboratory Tests Test 08/14/16 05:36 White Blood Count 13.9 H Red Blood Count 4.36 L Hemoglobin 13.0 L Hematocrit 40.0 L Mean Corpuscular Volume 91.7 Mean Corpuscular Hemoglobin 29.8 Mean Corpuscular Hemoglobin Concent 32.5 Red Cell Distribution Width 12.1 Platelet Count 297 Mean Platelet Volume 9.3 Neutrophils % 87.0 H Lymphocytes % 7.8 L Monocytes % 4.7 Eosinophils % 0.0 Basophils % 0.1 Nucleated Red Blood Cells % 0.0 Neutrophils # 12.1 H Lymphocytes # 1.1 Monocytes # 0.7 Eosinophils # 0.0 Basophils # 0.0 Nucleated Red Blood Cells # 0.0 Sodium Level 140 Potassium Level 4.1 Chloride Level 99 Carbon Dioxide Level 26 Anion Gap 19 H Blood Urea Nitrogen 10 Creatinine 0.81 Glucose Level 120 Calcium Level 9.2 Phosphorus Level 3.7 Magnesium Level 2.4 Total Bilirubin 0.6 Direct Bilirubin 0.00 Indirect Bilirubin 0.6 Aspartate Amino Transf (AST/SGOT) 26 Alanine Aminotransferase (ALT/SGPT) 44 Alkaline Phosphatase 89 Total Protein 7.0 # Albumin 4.2 Globulin 2.80 Albumin/Globulin Ratio 1.50 Medications Medications Current Medications Acetaminophen/ Hydrocodone Bitart ([place] (5/325)) 1 tab Q6H PRN PO MODERATE PAIN LEVEL 4-6; Start 08/13/16 at 12:30 Morphine Sulfate (morphine) 2 mg Q4H PRN IV SEVERE PAIN LEVEL 7-10; Start 08/13 at 12:30 Famotidine 20 mg 20 mg Q12 IV Last administered on 08/14/16 08:01; Admin Dose 20 MG; Start 08/13/16 at 21:00 Lactated Ringer's 1,000 ml @ 30 mls/hr Q24H IV ; Start 08/13/16 at 15:30 Piperacillin Sod/ Tazobactam Sod (Zosyn 3.375gm/ 100 ml (Pmx)) 100 ml @ 200 mls /hr Q6 IVPB Last administered on 08/14/16 05:00; Admin Dose 200 MLS/HR; Start 08/13/16 at 17:00 Ondansetron HCl (Zofran Inj) 4 mg Q6H PRN IV NAUSEA AND/OR VOMITING; Start at 16:00 Acetaminophen (Tylenol Tab) 650 mg Q6H PRN PO PAIN LEVEL 1-3 OR FEVER; Start at 16:00 Ketorolac Tromethamine (Toradol) 15 mg Q6H IV Last administered on 08/14/16 09: 43; Admin Dose 15 MG; Start 08/13/16 at 16:00; Stop 08/15/16 at 10:01 Hydromorphone HCl (Dilaudid) 0.5 mg Q4H PRN IV PAIN LEVEL 8-10; Start 08/13/16 at 16:00 Acetaminophen/ Hydrocodone Bitart 1 tab 1 tab Q6H PRN PO PAIN LEVEL 4-7; Start 08/13/16 at 16:00 Potassium Chloride/Dextrose/ Sod Cl (D5-NS + KCl 20 Meq) 1,000 ml @ 100 mls/hr Q10H IV Last administered on 08/13/16 23:59; Admin Dose 100 MLS/HR; Start at 15:54 Enoxaparin Sodium (Lovenox) 40 mg DAILY@07 SC Last administered on 08/14/16 07: 55; Admin Dose 40 MG; Start 08/14/16 at 07:00 KATHY CASTELLANOS NP Aug 14, 2016 10:45
[2016-08-14] MEDS: SOD CHLORIDE 0.9% 1,000 ML IV SCH (13:11)
[2016-08-14 20:42] VITALS: BP 108/66; RESP 18
[2016-08-15] MEDS: SOD CHLORIDE 0.9% 1,000 ML IV SCH ×2 (00:50→14:33)
[2016-08-15] MEDS: KETOROLAC 15 MG INJ IV SCH ×2 (04:17→10:09)
[2016-08-15] MEDS: PIPER-TAZO 3.375 GM IV (PMX) 100 ML IVPB SCH ×4 (04:17→23:53)
[2016-08-15 05:52] LABS: BASOPHILS % 0.2 % (0.0-2.0); EOSINOPHILS # 0.1 10^3/ul (0.0-0.5); EOSINOPHILS % 0.8 % (0.0-7.0); HEMATOCRIT 38.1 % (42.0-52.0); HEMOGLOBIN 12.6 g/dl (14.0-18.0); LYMPHOCYTES # 1.8 10^3/ul (0.8-2.9); LYMPHOCYTES % 15.1 % (15.0-51.0); MEAN CORPUSCULAR HEMOGLOBIN 30.7 pg (29.0-33.0); MEAN CORPUSCULAR HGB CONC 33.1 g/dl (32.0-37.0); MEAN CORPUSCULAR VOLUME 92.7 fl (82.0-101.0); MEAN PLATELET VOLUME 9.2 fl (7.4-10.4); MONOCYTE # 0.9 10^3/ul (0.3-0.9); MONOCYTES % 7.1 % (0.0-11.0); NEUTROPHIL # 9.3 10^3/ul (1.6-7.5); NEUTROPHILS % 76.5 % (39.0-77.0); PLATELET COUNT 317 10^3/UL (140-415); RED BLOOD COUNT 4.11 10^6/ul (4.70-6.10); WHITE BLOOD COUNT 12.1 10^3/ul (4.8-10.8)
[2016-08-15 06:01] LABS: MAGNESIUM 2.1 mg/dl (1.7-2.5); PHOSPHORUS 3.5 mg/dl (2.5-4.9)
[2016-08-15 06:07] LABS: CREATININE 0.8 mg/dl (0.61-1.24); POTASSIUM 3.8 mmol/L (3.5-5.1)
[2016-08-15 07:07] LABS: ADD SCAN DIFF NO
[2016-08-15] MEDS: FAMOTIDINE 20 MG INJ IV SCH ×2 (09:03→21:15)
[2016-08-15] MEDS: ENOXAPARIN 40 MG/0.4 ML SYG SC SCH (09:05)
--- NOTE | 2016-08-15 09:30 | PN ---
Date/Time of Note Date/Time of Note DATE: 08/15/16 TIME: 09:28 Assessment/Plan Lines/Catheters IV Catheter Type (from Nrs): Peripheral IV Hinds in Place (from Nrsg): No Assessment/Plan Assessment/Plan postop day 2 status post lap appendectomy Had low-grade temperature yesterday so recommend 24 hours more of IV antibiotic White count decreasing Okay for discharge tomorrow Subjective 24 Hr Interval Summary Constitutional: improved, no complaints Pain Control: well controlled Exam/Review of Systems Vital Signs Vitals Vital Signs Date Time Temp Pulse Resp B/P Pulse Ox O2 Delivery O2 Flow Rate FiO2 08/14/16 23:47 99.2 08/14/16 20:42 82 18 108/66 96 08/13/16 18:20 Room Air 08/13/16 17:31 2.0 Intake and Output 08/14/16 08/14/16 08/15/16 15:00 23:00 07:00 Intake Total 700 ml 1260 ml 1170 ml Output Total 40 ml 815 ml Balance 700 ml 1220 ml 355 ml Exam Constitutional: alert, oriented, well developed Gastrointestinal: non-tender, soft Results Result Diagram: 08/15/16 0524 08/15/16 0524 REGGIE MUNSON MD Aug 15, 2016 09:30
[2016-08-15 10:06] VITALS: BP 108/63; RESP 18
--- NOTE | 2016-08-15 12:43 | PN ---
Date/Time of Note Date/Time of Note DATE: 08/15/16 TIME: 12:42 Assessment/Plan VTE Prophylaxis VTE Prophylaxis Intervention: LMWH Lines/Catheters IV C[facility]ter Type (from [facility]): Peripheral IV Urinary Cath still in place: No Assessment/Plan Chief Complaint/Hosp Course 1. Perforated appendicitis. Status post laparoscopic appendectomy and placement of a drain on 08/13/2016. Continue antibiotics. Continue pain control. Encourage frequent ambulation and frequent use of incentive spirometry 2. Leukocytosis. Most probably secondary to #1. Continue management as per # 1. 3. Dyslipidemia. Will reinforce a low-cholesterol diet. 4. Prediabetes. Hemodynamics of 6.1. Will reinforce a low carbohydrate diet. 5. Fluids, electrolytes, and nutrition. Low-cholesterol diet. 6. DVT prophylaxis. Subcutaneous Lovenox. 7. Gastrointestinal prophylaxis. Histamine 2 receptor blockers. 8. Plan. Continue pain management. Continue empiric antibiotics. Encourage frequent ambulation and frequent use of incentive spirometer. Discharge home once cleared by surgery. Case discussed with . Problems: Subjective 24 Hr Interval Summary Free Text/Dictation Had a low-grade fever last night. Exam/Review of Systems Vital Signs Vitals Vital Signs Date Time Temp Pulse Resp B/P Pulse Ox O2 Delivery O2 Flow Rate FiO2 08/15/16 10:06 98.7 75 18 108/63 95 08/13/16 18:20 Room Air 08/13/16 17:31 2.0 Intake and Output 08/14/16 08/14/16 08/15/16 15:00 23:00 07:00 Intake Total 700 ml 1260 ml 1170 ml Output Total 40 ml 815 ml Balance 700 ml 1220 ml 355 ml Exam General: Adequately build 31 year-old male lying in bed in no apparent distress. HEENT: Normocephalic, atraumatic. Eyes: Anicteric sclerae, conjunctivae clear. ENT: Nasal septum midline, oral mucosa moist. Neck supple, no JVD noticed. Respiratory: Bilaterally clear breath sounds. No use of accessory muscles of respiration. No adventitious breath sounds. Cardiovascular: S1, S2 heard. No murmurs or gallops. Abdomen: Soft and nondistended. Bowel sounds positive in all 4 quadrants. Right lower quadrant tenderness. Right lower quadrant drain in place. Genitourinary: Deferred. Extremities: No cyanosis, no clubbing, no edema. Peripheral pulses palpable. Neurologic: Cranial nerves II through XII grossly intact. The patient is awake, alert, and oriented. Skin: Normal skin turgor. No skin rashes. Results Result Diagram: 08/15/1652308/15/16523 Results 24 hrs Laboratory Tests Test 08/15/16 05:24 White Blood Count 12.1 H Red Blood Count 4.11 L Hemoglobin 12.6 L Hematocrit 38.1 L Mean Corpuscular Volume 92.7 Mean Corpuscular Hemoglobin 30.7 Mean Corpuscular Hemoglobin Concent 33.1 Red Cell Distribution Width 12.0 Platelet Count 317 Mean Platelet Volume 9.2 Neutrophils % 76.5 Lymphocytes % 15.1 Monocytes % 7.1 Eosinophils % 0.8 Basophils % 0.2 Nucleated Red Blood Cells % 0.0 Neutrophils # 9.3 H Lymphocytes # 1.8 Monocytes # 0.9 Eosinophils # 0.1 Basophils # 0.0 Nucleated Red Blood Cells # 0.0 Sodium Level 142 Potassium Level 3.8 Chloride Level 101 Carbon Dioxide Level 25 Anion Gap 20 H Blood Urea Nitrogen 10 Creatinine 0.80 Glucose Level 91 Calcium Level 9.0 Phosphorus Level 3.5 Magnesium Level 2.1 Medications Medications Current Medications Acetaminophen/ Hydrocodone Bitart ([place] (5/325)) 1 tab Q6H PRN PO MODERATE PAIN LEVEL 4-6; Start 08/13/16 at 12:30 Morphine Sulfate (morphine) 2 mg Q4H PRN IV SEVERE PAIN LEVEL 7-10; Start 08/13 at 12:30 Famotidine 20 mg 20 mg Q12 IV Last administered on 08/15/16 09:03; Admin Dose 20 MG; Start 08/13/16 at 21:00 Piperacillin Sod/ Tazobactam Sod (Zosyn 3.375gm/ 100 ml (Pmx)) 100 ml @ 200 mls /hr Q6 IVPB Last administered on 08/15/16 04:17; Admin Dose 200 MLS/HR; Start 08/13/16 at 17:00 Ondansetron HCl (Zofran Inj) 4 mg Q6H PRN IV NAUSEA AND/OR VOMITING; Start at 16:00 Acetaminophen (Tylenol Tab) 650 mg Q6H PRN PO PAIN LEVEL 1-3 OR FEVER Last administered on 08/14/16 23:28; Admin Dose 650 MG; Start 08/13/16 at 16:00 Hydromorphone HCl (Dilaudid) 0.5 mg Q4H PRN IV PAIN LEVEL 8-10; Start 08/13/16 at 16:00 Acetaminophen/ Hydrocodone Bitart ([place] (5/325)) 1 tab Q6H PRN PO PAIN LEVEL 4 -7; Start 08/13/16 at 16:00 Enoxaparin Sodium 40 mg 40 mg DAILY@07 SC Last administered on 08/15/16 09:05; Admin Dose 40 MG; Start 08/14/16 at 07:00 Sodium Chloride (NS) 1,000 ml @ 75 mls/hr [id number] IV Last administered on 13:11; Admin Dose 75 MLS/HR; Start 08/14/16 at 11:30 Ketorolac Tromethamine (Toradol) 15 mg ONCE IV ; Start 08/15/16 at 16:00; Stop at 16:01 KATHY CASTELLANOS NP Aug 15, 2016 12:43
[2016-08-15] MEDS ORDERED: KETOROLAC 15 MG INJ IV SCH (16:00)
[2016-08-15 20:09] VITALS: BP 112/72; RESP 18
[2016-08-16] MEDS: PIPER-TAZO 3.375 GM IV (PMX) 100 ML IVPB SCH ×2 (05:39→13:15)
[2016-08-16 06:16] LABS: BASOPHIL # 0.1 10^3/ul (0.0-0.1); BASOPHILS % 0.5 % (0.0-2.0); EOSINOPHILS # 0.3 10^3/ul (0.0-0.5); EOSINOPHILS % 2.5 % (0.0-7.0); HEMATOCRIT 41.8 % (42.0-52.0); HEMOGLOBIN 13.4 g/dl (14.0-18.0); LYMPHOCYTES # 1.6 10^3/ul (0.8-2.9); LYMPHOCYTES % 13.1 % (15.0-51.0); MEAN CORPUSCULAR HEMOGLOBIN 29.6 pg (29.0-33.0); MEAN CORPUSCULAR HGB CONC 32.1 g/dl (32.0-37.0); MEAN CORPUSCULAR VOLUME 92.5 fl (82.0-101.0); MEAN PLATELET VOLUME 9.5 fl (7.4-10.4); MONOCYTE # 0.8 10^3/ul (0.3-0.9); MONOCYTES % 6.7 % (0.0-11.0); NEUTROPHIL # 9.5 10^3/ul (1.6-7.5); NEUTROPHILS % 76.8 % (39.0-77.0); PLATELET COUNT 373 10^3/UL (140-415); RED BLOOD COUNT 4.52 10^6/ul (4.70-6.10); RED CELL DISTRIBUTION WIDTH 12.2 % (11.5-14.5); WHITE BLOOD COUNT 12.4 10^3/ul (4.8-10.8)
[2016-08-16] MEDS: ENOXAPARIN 40 MG/0.4 ML SYG SC SCH (06:40)
[2016-08-16 06:41] LABS: MAGNESIUM 2.2 mg/dl (1.7-2.5); PHOSPHORUS 5.4 mg/dl (2.5-4.9)
[2016-08-16 07:58] VITALS: BP 116/75; RESP 17
[2016-08-16 08:11] LABS: CALCIUM 9.8 mg/dl (8.4-10.2); CREATININE 0.84 mg/dl (0.61-1.24); POTASSIUM 3.9 mmol/L (3.5-5.1)
[2016-08-16] MEDS: FAMOTIDINE 20 MG INJ IV SCH (09:05)
[2016-08-16] MEDS ORDERED: DOCU-144 PO (15:48)
[2016-08-16] MEDS ORDERED: OXYC-279 PO (15:49)
[2016-08-16] MEDS ORDERED: AMOX1TAB9 PO (15:51)
[2016-08-16] MEDS ORDERED: AMOX1TAB10 PO (15:53)
--- NOTE | 2016-08-16 19:18 | PN ---
Date/Time of Note Date/Time of Note DATE: 08/16/16 TIME: 19:17 Assessment/Plan VTE Prophylaxis VTE Prophylaxis Intervention: SCD's Lines/Catheters IV Catheter Type (from Nrs): Peripheral IV Urinary Cath still in place: No Assessment/Plan Assessment/Plan acute appendicitis, s/p Laproscopic appendectomhy doing ok, toleratign po diet well, plan for d/c home today with drain in palce to see pt in clinic and d/c Drain in clinic Subjective 24 Hr Interval Summary Free Text/Dictation doing ok, plan for d/c home today Exam/Review of Systems Vital Signs Vitals Vital Signs Date Time Temp Pulse Resp B/P Pulse Ox O2 Delivery O2 Flow Rate FiO2 08/16/16 07:58 99.2 68 17 116/75 99 08/13/16 18:20 Room Air 08/13/16 17:31 2.0 Intake and Output 08/15/16 08/15/16 08/16/16 15:00 23:00 07:00 Intake Total 450 ml 1342.5 ml 700 ml Output Total 660 ml 1063 ml Balance 450 ml 682.5 ml -363 ml Exam Constitutional: alert Psych: no complaints Head: normocephalic ENMT: nl external ears & nose Neck: supple Respiratory: clear to auscultation Cardiovascular: regular rate and rhythm Gastrointestinal: non-tender, soft Results Result Diagram: 08/16/16 0520 08/16/16 0520 Results 24 hrs Laboratory Tests Test 08/16/16 05:20 White Blood Count 12.4 H Red Blood Count 4.52 L Hemoglobin 13.4 L Hematocrit 41.8 L Mean Corpuscular Volume 92.5 Mean Corpuscular Hemoglobin 29.6 Mean Corpuscular Hemoglobin Concent 32.1 Red Cell Distribution Width 12.2 Platelet Count 373 Mean Platelet Volume 9.5 Neutrophils % 76.8 Lymphocytes % 13.1 L Monocytes % 6.7 Eosinophils % 2.5 Basophils % 0.5 Nucleated Red Blood Cells % 0.0 Neutrophils # 9.5 H Lymphocytes # 1.6 Monocytes # 0.8 Eosinophils # 0.3 Basophils # 0.1 Nucleated Red Blood Cells # 0.0 Sodium Level 142 Potassium Level 3.9 Chloride Level 100 Carbon Dioxide Level 24 Anion Gap 22 H Blood Urea Nitrogen 9 Creatinine 0.84 Glucose Level 95 Calcium Level 9.8 Phosphorus Level 5.4 H Magnesium Level 2.2 GHAZAL DANIELLE MD Aug 16, 2016 19:18
--- NOTE | 2016-08-16 21:22 | DS ---
Date/Time of Note Date/Time of Note DATE: 08/16/16 TIME: 21:15 Discharge Summary Admission/Discharge Info Admit Date/Time Aug 13, 2016 at 12:01 Discharge Date/Time Aug 16, 2016 at 18:30 Discharge Diagnosis acute appendicitis with perforated Appendix S/p Laproscopic Appendectomy Patient Condition: Good Consults General Surgery Procedures laproscopic Appendectomy Hx of Present Illness The patient is a 31-year-old male who developed acute onset right lower quadrant pain 2 days ago. His symptoms persisted and he had nausea vomiting. He presented to the ER at [facility]. His workup was consistent with acute appendicitis and I was called for consultation. Hospital Course 31 M presented with Perforated appendicitis. Status post laparoscopic appendectomy and placement of a drain on 08/13/2016. Treated wit IV abx, pain controlled and was tolerating PO diet he was written for PO abx and pain medication prescription written by General surgery and he was discharged home with drain in place. He was discharged home with drain in place and follow up with G surg in outpatietn clinic in 1-2 weeks where he will evaluate pt for removal of drain. Home Meds Reported Medications Amoxicillin/Potassium Clav (Amox-Clav 875-125 mg Tablet) 875-125 mg Tab, 1 TAB PO DAILY for 7 Days, #7 TAB 08/16/16 Oxycodone HCl/Acetaminophen (Percocet 5-325 mg Tablet) 1 Each Tablet, 1 EACH PO Q4 Y for PAIN LEVEL 6-10, TAB 08/16/16 Docusate Sodium* (Colace*) 100 Mg Capsule, 100 MG PO DAILY for 7 Days, #10 CAP 08/16/16 Discontinued Reported Medications Amoxicillin/Potassium Clav (Amox-Clav 500-125 mg Tablet) 500-125 mg Tab, 1 TAB PO DAILY for 7 Days, TAB 08/16/16 Follow-up Plan Follow up with his own PMD through HMO Insurance in 1-2 week after discharge, Follow up with Gen Surgery Dr.Matthew Gomez in outpatient clinic in for removal of drain in place Primary Care Provider Care Physician No Primary Time spent on discharge: > 30 minutes Pending Labs Laboratory Tests Test 08/16/16 05:20 White Blood Count 12.410^3/ul (4.8-10.8) Red Blood Count 4.5210^6/ul (4.70-6.10) Hemoglobin 13.4g/dl (14.0-18.0) Hematocrit 41.8% (42.0-52.0) Mean Corpuscular Volume 92.5fl (82.0-101.0) Mean Corpuscular Hemoglobin 29.6pg (29.0-33.0) Mean Corpuscular Hemoglobin Concent 32.1g/dl (32.0-37.0) Red Cell Distribution Width 12.2% (11.5-14.5) Platelet Count 46142^3/UL (140-415) Mean Platelet Volume 9.5fl (7.4-10.4) Neutrophils % 76.8% (39.0-77.0) Lymphocytes % 13.1% (15.0-51.0) Monocytes % 6.7% (0.0-11.0) Eosinophils % 2.5% (0.0-7.0) Basophils % 0.5% (0.0-2.0) Nucleated Red Blood Cells % 0.0/100WBC (0.0-0.0) Neutrophils # 9.510^3/ul (1.6-7.5) Lymphocytes # 1.610^3/ul (0.8-2.9) Monocytes # 0.810^3/ul (0.3-0.9) Eosinophils # 0.310^3/ul (0.0-0.5) Basophils # 0.110^3/ul (0.0-0.1) Nucleated Red Blood Cells # 0.010^3/ul (0.0-0.0) Sodium Level 142mmol/L (135-144) Potassium Level 3.9mmol/L (3.5-5.1) Chloride Level 100mmol/L (97-110) Carbon Dioxide Level 24mmol/L (21-31) Anion Gap 22 (8-16) Blood Urea Nitrogen 9mg/dl (7-20) Creatinine 0.84mg/dl (0.61-1.24) Glucose Level 95mg/dl (70-220) Calcium Level 9.8mg/dl (8.4-10.2) Phosphorus Level 5.4mg/dl (2.5-4.9) Magnesium Level 2.2mg/dl (1.7-2.5) GHAZAL DANIELLE MD Aug 16, 2016 21:22
== END 2016-08-16 18:30 | disposition home or self-care (01) | DRG 340 ==
LOC: FTE 07:43 → SDS 12:00 → PP2 12:01 → SDS 12:01 → PP2 18:40
PROVIDERS: ADMIT Surgery; ATTEND Family Medicine
PROC: 0DTJ4ZZ Resection of Appendix, Percutaneous Endoscopic Approach (ICD-10-PCS; principal; 2016-08-13 16:00)
DX: K35.2 Acute appendicitis with generalized peritonitis (principal); E78.5 Hyperlipidemia, unspecified; R73.03 Prediabetes
CPT/HCPCS: 36415; 71010; 74176; 80048; 80053; 80061; 81003; 83036; 83690; 83735; 84100; 84439; 84443; 85025; 85610; 85730; 88304; 88312; 96361; 96374; 96375; J0131; J1100; J1650; J1885; J2250; J2270; J2405; J2543; J2710; J2765; J2795; J3010; J3480; J7030; J7120; J7999

== ENCOUNTER 2016-08-20 10:46 | Emergency (ER) | payer MEDICAID ==
[~2016-08-20] VITALS: Ht 165.1 cm; Wt 88.5 kg
[~2016-08-20 10:46] MED LIST changes: +AMOX1TAB10 PO; +DOCU-144 PO; +OXYC-279 PO; -SUCCINYLCHOLINE CHLORIDE 100 MG/5 ML SYG IV ONE
[2016-08-20 10:50] VITALS: Ht 165.1 cm; Wt 88.5 kg
--- NOTE | 2016-08-20 12:38 | ERA ---
ER Documentation Chief Complaint Date/Time DATE: 08/20/16 TIME: 12:35 Chief Complaint bleeding from suprapubic catheter x 1 day HPI 31-year-old male who presents the emergency room with some small bleeding around the ELDA drain site. He does not have a suprapubic catheter despite was noted at triage. The patient is postop day 8 from a ruptured appendicitis with a ELDA drain. He did note some mild leaking around the drain site and came to the emergency room. He denies any fevers or pain. The drain is collecting fluid. He has follow-up on Tuesday with his surgeon. ROS All systems reviewed and are negative except as per history of present illness. Medications Home Meds Reported Medications Amoxicillin/Potassium Clav (Amox-Clav 875-125 mg Tablet) 875-125 mg Tab, 1 TAB PO DAILY for 7 Days, #7 TAB 08/16/16 Oxycodone HCl/Acetaminophen (Percocet 5-325 mg Tablet) 1 Each Tablet, 1 EACH PO Q4 Y for PAIN LEVEL 6-10, TAB 08/16/16 Docusate Sodium* (Colace*) 100 Mg Capsule, 100 MG PO DAILY for 7 Days, #10 CAP 08/16/16 Discontinued Reported Medications Amoxicillin/Potassium Clav (Amox-Clav 500-125 mg Tablet) 500-125 mg Tab, 1 TAB PO DAILY for 7 Days, TAB 08/16/16 Allergies Allergies: Coded Allergies: No Known Drug Allergies (Verified Allergy, Unknown, 08/20/16) PMhx/Soc History of Surgery: Yes (hernia repair, appendectomy) Anesthesia Reaction: No Hx Neurological Disorder: No Hx Respiratory Disorders: No Hx Cardiac Disorders: No Hx Psychiatric Problems: No Hx Miscellaneous Medical Probl: No Hx Alcohol Use: No Hx Substance Use: No Hx Tobacco Use: No Smoking Status: Never smoker FmHx Family History: No diabetes Physical Exam Vitals Vital Signs Date Time Temp Pulse Resp B/P Pulse Ox O2 Delivery O2 Flow Rate FiO2 08/20/16 10:50 99.0 80 18 117/60 98 Physical Exam General: Well developed, well nourished, no acute distress Head: Normocephalic, atraumatic. Eyes: Pupils equally reactive, EOM intact ENT: Moist mucous membranes Neck: Supple, no lymphadenopathy Respiratory: Lungs clear bilaterally, no distress Cardiovascular: RRR, no murmurs, rubs, or gallops Abdominal: Soft, non-tender, non-distended, no peritoneal signs, right lower quadrant ELDA drain is well-appearing, small leaking around the drain but serosanguineous fluid within the drain itself, sutures intact. : Deferred MSK: No edema, no unilateral swelling, 5/5 strength Neurologic: Alert and oriented, moving all extremities, normal speech, no focal weakness, no cerebellar signs Skin: No rash Psych: Normal mood Procedures/MDM The patient's wound is extremely well-appearing here in the emergency room. There are no signs or symptoms concerning for complication such as wound dehiscence, wound infection, cellulitis, or deep space infection. I discussed routine wound care as well as scar minimization techniques. The patient is safe for discharge with outpatient primary care follow-up as needed. I discussed the case with the patient's surgeon Dr. Gomez. He states that this is as expected. He recommends discharge, dressing change, follow-up with him on Tuesday. Dressing was changed. Patient was informed. Patient is discharged. Departure Diagnosis: Primary Impression: Encounter for wound re-check Condition: Stable Patient Instructions: Caring for a Drainage Tube Referrals: REGGIE GOMEZ MD Additional Instructions: Call your primary care doctor TOMORROW for an appointment during the next 2-3 days.See the doctor sooner or return here if your condition worsens before your appointment time. Follow up as planned. Change dressing regularly and keep clean and dry. LAUREN ORTIZ MD Aug 20, 2016 12:37
== END 2016-08-20 11:39 | disposition home or self-care (01) ==
LOC: E/R 10:46
DX: Z48.01 Encounter for change or removal of surgical wound dressing (principal)
CPT/HCPCS: 99281

== ENCOUNTER 2017-08-03 21:04 | Emergency (ER) | END 2017-08-04 01:30 | disposition home or self-care (01) ==